=== PATIENT | female | born 1970 | race American Indian/Alaskan Native ===

== ENCOUNTER 2021-10-25 12:12 | Emergency (ER) | payer MEDICAID ==
[2021-10-25] MEDS ORDERED: MORPHINE 4 MG/1 ML INJ IV ONE (13:13)
[2021-10-25] MEDS: ONDANSETRON 4 MG/2 ML INJ IV ONE (13:31)
--- NOTE | 2021-10-25 13:43 | Emergency Department Report ---
HPI - General Chief Complaint: Back Pain/Injury Time Seen by Provider: 10/25/21 13:04 - HPI HPI: Room 30 --> 35 The patient is a 51-year-old female present with a chief complaint of flank pain. Patient states since last night she has had severe pain in the left abdomen and flank. Patient has nausea but denies vomiting or diarrhea. Patient denies history of fever. Patient states she has had the same pain in the past has been attributed to the mass she has on her left adrenal gland. Patient currently gives her pain a score of 10/10. ED Past Medical Hx - Past Medical History Previous Medical History?: Yes Hx Hypertension: Yes Hx Heart Attack/AMI: Yes Additional medical history: aortic dissection. cardiac stent placement - Surgical History Additional Surgical History: Aortic dissection repair July 2017. - Family History Family history: no significant - Social History Smoking Status: Current Some Day Smoker Substance Use Type: None (Denies illicit drug use) ED Review of Systems ROS: Stated complaint: HIGH BP/SIDE PAIN Other details as noted in HPI Constitutional: denies: fever Eyes: denies: eye pain ENT: denies: throat pain Respiratory: no symptoms reported Cardiovascular: denies: chest pain Endocrine: no symptoms reported Gastrointestinal: abdominal pain, nausea. denies: vomiting Genitourinary: denies: dysuria Musculoskeletal: back pain Neurological: denies: headache Physical Exam - Physical Exam Vital Signs: Vital Signs 10/25/21 12:16 Temperature 98.3 F Pulse Rate 108 H Respiratory 16 Rate Blood Pressure 224/159 O2 Sat by Pulse 99 Oximetry Physical Exam: GENERAL: The patient is well-developed well-nourished female lying on stretcher appearing tearful. [] HEENT: Normocephalic. Atraumatic. Extraocular motions are intact. Patient has moist mucous membranes. NECK: Supple. Trachea midline CHEST/LUNGS: Clear to auscultation. There is no respiratory distress noted. HEART/CARDIOVASCULAR: Regular. There is tachycardia. There is no gallop rub or murmur. ABDOMEN: Abdomen is soft, with tenderness to palpation in the epigastric and left upper quadrant. There is no rebound or guarding. The remainder of the a bdomen is soft and nontender to palpation. Patient has normal bowel sounds. There is no abdominal distention. SKIN: There is no rash. There is no edema. There is no diaphoresis. NEURO: The patient is awake, alert, and oriented. The patient is cooperative. The patient has no focal neurologic deficits. The patient has normal speech. GCS 15 MUSCULOSKELETAL: There is bilateral CVA tenderness. There is no evidence of acute injury. ED Course Vital Signs 10/25/21 12:16 Temperature 98.3 F Pulse Rate 108 H Respiratory 16 Rate Blood Pressure 224/159 O2 Sat by Pulse 99 Oximetry - Consultations Consultation #1: 10/25/21 18:01 [facility] transfer line called ED Medical Decision Making - Lab Data Result diagrams: 10/25/21 13:51 10/25/21 13:51 - Differential Diagnosis Renal colic, pyelonephritis, hypertensive urgency, hypertensive emergency Critical care attestation.: If time is entered above; I have spent that time in minutes in the direct care of this critically ill patient, excluding procedure time. ED Disposition Clinical Impression: Aortic dissection, Hypertensive emergency Disposition: 51 HOSPICE[facility]MEDICAL FACILITY Is pt being admited?: No Does the pt Need Aspirin: No Condition: Serious Instructions: Hypertension (ED) Referrals: PRIMARY CARE, [Primary Care Provider] - 3-5 Days
[2021-10-25] MEDS ORDERED: SODIUM CHLORIDE 0.9% 1000 ML 1,000 ML IV ONE (13:44)
[2021-10-25] MEDS ORDERED: cloNIDine 0.2 MG TAB PO ONE (14:03)
[2021-10-25 14:32] LABS: Basophils % (Auto) 0.5 % (0.0-1.8); Eosinophils % (Auto) 0.5 % (0.0-4.3); Hematocrit 34.3 % (30.3-42.9); Hemoglobin 10.8 gm/dl (10.1-14.3); Lymphocytes # (Auto) 0.8 K/mm3 (1.2-5.4); Lymphocytes % (Auto) 8.8 % (13.4-35.0); Mean Corpuscular HGB Conc 31 % (30-34); Mean Corpuscular Volume 83 fl (79-97); Monocytes # (Auto) 1.2 K/mm3 (0.0-0.8); Monocytes % (Auto) 13.8 % (0.0-7.3); Platelet Count 178 K/mm3 (140-440); Red Blood Count 4.13 M/mm3 (3.65-5.03); Red Cell Distribution Width 16.7 % (13.2-15.2)
[2021-10-25 14:53] LABS: Albumin 3.4 g/dL (3.9-5); BUN/Creatinine Ratio 18; Blood Urea Nitrogen 39 mg/dL (7-17); Calcium 9.4 mg/dL (8.4-10.2); Hemolysis Index 2
[2021-10-25 14:53] LABS: Bilirubin,Urine NEG (Negative); Blood,Urine NEG (Negative); Color,Urine Straw (Yellow); Mucus,Urine FEW /HPF; RBC,Urine < 1.0 /HPF (0.0-6.0); Urobilinogen,Urine < 2.0 mg/dL (<2.0)
[2021-10-25 14:56] LABS: Alanine Aminotransferase < 5 units/L (7-56)
--- NOTE | 2021-10-25 16:26 | Cat Scan Report ---
CT ABDOMEN AND PELVIS WITHOUT CONTRAST INDICATION / CLINICAL INFORMATION: Left flank pain, history of left adrenal mass. TECHNIQUE: Axial CT images were obtained through the abdomen and pelvis without IV contrast. All CT scans at this location are performed using CT dose reduction for ALARA by means of automated exposure control. COMPARISON: None available. FINDINGS: Crescentic hyperattenuation along the distal thoracic aorta which is dilated, measuring 6.2 cm. The a bdominal aorta is dilated with focal saccular aneurysm at the infrarenal abdominal aorta, measuring 5 .3 cm (series 2 image 106). The left iliac artery is also aneurysmal. Evaluation of the aorta is limi florentino without intravenous contrast. Small volume bland appearing left pleural fluid. Bibasilar airspace opacities most likely reflect vol ume loss or edema. No airspace consolidation. Liver, gallbladder, pancreas, and spleen are unremarkable. There is a large indeterminate left adrena l mass with areas of macroscopic fat, may reflect adrenal myelolipoma. This measures 15.6 cm. Right a drenal gland appears unremarkable. No acute abnormality of the kidneys. Bladder and uterus are unrema rkable. No evidence of bowel obstruction or inflammation. There is no free air. No pneumatosis. Normal append ix. No acute osseous findings. Chronic pars defects at L4 with grade 1 anterolisthesis of L4 on L5 an d severe disc and endplate changes. IMPRESSION: 1. 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 The abdominal aorta and left iliac artery are aneurysmal, though not further characterized without contrast. Recommend furth er evaluation with CTA of the chest, abdomen, and pelvis. 2. Small left pleural effusion with bibasilar atelectasis/edema. 3. Massive left adrenal mass. This demonstrates macroscopic fat and may reflect an adrenal myelolipom a. Recommend surgical consultation due to increased risk of hemorrhage. 4. Other chronic and incidental findings as above. Critical findings were discussed with Dr. Noonna by phone on 10/25/2021 at 3:21 PM. Signer Name: Amilcar Cross MD Signed: 10/25/2021 4:21 PM Workstation Name: [id number]
[2021-10-25] MEDS ORDERED: ESMOLOL DRIP 2.5 GM/250 ML BAG IV ONE ×2 (17:00→19:00)
--- NOTE | 2021-10-25 18:08 | Cat Scan Report ---
CTA CHEST, ABDOMEN, AND PELVIS (AORTIC DISSECTION) INDICATION / CLINICAL INFORMATION: Intramural hematoma of thoracic aorta on prev CT 100 ML OMNI 350 . TECHNIQUE: Axial CT images were obtained through the chest, abdomen, and pelvis before and after inje ction of 100 cc of Omnipaque 350 IV contrast. 3 plane MIP and/or 3D reconstructions were produced. Al l CT scans at this location are performed using CT dose reduction for ALARA by means of automated exp osure control. COMPARISON: None available. FINDINGS: HEART: - Size: Normal. - [place] Coronary Atherosclerosis: None. - Pericardium: No pericardial effusion. THORACIC AORTA: - Dissection: Type A dissection. The dissection extends from the proximal ascending aorta down throug h the bifurcation. - Aneurysm: There is aneurysmal dilatation of the thoracic aorta, measuring up to 5.7 cm in the proxi mal descending thoracic aorta and 5.6 cm in the proximal ascending thoracic aorta. - Atherosclerosis: There is a penetrating atherosclerotic ulcer of the mid thoracic aorta with a neck measuring 1.5 cm. - Location of Thoracic Aorta: 3.3 cm to the right of midline; 2.5 cm deep to posterior sternum; 4.7 c m deep to the skin. GREAT VESSELS: There is a saccular aneurysm off the right axillary artery measuring up to 1.2 cm (ser ies 3 image 61). No significant atherosclerosis. - Right Axillary artery diameter (cm): 1.1 - Right Subclavian artery diameter (cm): 1.2 - Right Common Carotid artery diameter (cm): 1.1 - Left Axillary artery diameter (cm): 1.1 - Left Subclavian artery diameter (cm): 1.2 - Left Common Carotid artery diameter (cm): 0.7 PULMONARY ARTERIES: No pulmonary emboli. CHEST VEINS: Single SVC of normal caliber as visualized to the right of midline. No significant abnor mality. ABDOMINAL AORTA: - Dissection: Type A dissection. This extends down to the bifurcation. - Aneurysm: Aneurysmal dilatation of the abdominal aorta at the level of bifurcation measuring 6.4 cm - Atherosclerosis: Penetrating atherosclerotic ulcer of the infrarenal abdominal aorta with a neck me asuring up to 0.4 cm. CELIAC TRUNK: No significant abnormality. SUPERIOR MESENTERIC ARTERY: No significant abnormality. RENAL ARTERIES: No significant abnormality. INFERIOR MESENTERIC ARTERY: No significant abnormality. RIGHT ILIAC ARTERIES: No acute abnormality. No significant atherosclerosis. - Right Common Iliac artery diameter (cm): 1.9 - Right External Iliac artery diameter (cm): 1.2 LEFT ILIAC ARTERIES: No acute abnormality. No significant atherosclerosis. - Left Common Iliac artery diameter (cm): 2.7 - Left External Iliac artery diameter (cm): 1.1 RIGHT FEMORAL ARTERIES: No acute abnormality. No significant atherosclerosis. - Right Common Femoral artery diameter (cm): 1.3 LEFT FEMORAL ARTERIES: No acute abnormality. No significant atherosclerosis. - Left Common Femoral artery diameter (cm): 1.2 ABDOMINOPELVIC VEINS: Single IVC of normal caliber to the right of midline. No significant abnormalit y. ADDITIONAL CHEST FINDINGS: Atelectasis within the left lower lobe, adjacent to the aortic aneurysm. ADDITIONAL ABDOMINOPELVIC FINDINGS: Redemonstration of large angiomyolipoma of the left adrenal gland . This displaces the left kidney caudally. SKELETAL SYSTEM: Grade 1 anterolisthesis of L4 and L5 secondary to bilateral pars interarticularis de fects. IMPRESSION: 1. Type A thoracic dissection extending to the bifurcation. 2. Aneurysmal dilatation of the ascending aorta measuring up to 5.7 cm. Aneurysmal dilatation of the descending aorta measuring up to 5.6 cm. 3. 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 4. 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 5. Aneurysmal dilatation of the abdominal aorta at the bifurcation measuring up to 6.4 cm 6. Penetrating atherosclerotic ulcer of the infrarenal abdominal aorta with a neck measuring up to 0. 4 cm. 7. Aneurysmal dilatation of the bilateral common iliac arteries. 8. Large left adrenal angiomyolipoma. CRITICAL RESULT Time of Discovery (CHEMICAL PLANT TECHNICAL DIRECTOR/CDT): 4:50 PM Time of Communication (CHEMICAL PLANT TECHNICAL DIRECTOR/CDT): 4:54 PM Licensed Practitioner Receiving Report: Dr. Magallanes Read-Back Performed: Yes. Signer Name: Michael Carlos DO Signed: 10/25/2021 6:04 PM Workstation Name: [id number]
[2021-10-25 19:33] VITALS: BP 187/114
== END 2021-10-25 19:54 | disposition hospice, inpatient (51) ==
LOC: ED 12:12
DX: I71.00 Dissection of unspecified site of aorta (principal); I16.1 Hypertensive emergency; F17.200 Nicotine dependence, unspecified, uncomplicated; Z72.89 Other problems related to lifestyle
CPT/HCPCS: 36415; 71275; 74174; 74176; 80053; 81001; 83690; 84703; 85025; 96361; 96365; 96366; 96375; 96376; 99285; J2270; J2405; J3490; J7030; Q9967; Q0162